=== PATIENT | male | born 1970 | race Caucasian/White ===

== ENCOUNTER 2017-03-08 03:02 | Inpatient (IN) | payer MEDICAID ==
--- NOTE | ~2017-03-08 | HEMODYNAMI ---
PATIENT:TEQUILA LEÓN MEDICAL RECORD: [id number] : 72 [id number] ADMISSION DATE: 03/08/17 Generatedon:03/08/201715:18 Patient name: TEQUILA LEÓN Patient #: [id number] SSN: DO B: 1970 Date of study: 03/08/2017 Page: Of Hemodynamic Procedure Report Patient Data Patient Demographics Procedure consent was obtained First Name: TEQUILA Gender: Male Last Name: ROMELIA : 1970 Patient #: [id number] Age: 47 year(s) Race: Unknown Additional ID: [id number] Contact details [address]: [address] [place] [address] [address] State: [place] City: [facility] Zip code: [address] Admission Admission Data Admission Date: 03/08/2017 Admission Time: 7:02 Arrival Date: 03/08/2017 Arrival Time: 0:00 Admit Source: Other Insurance Payor: Medicaid Room #: D.2125 Lab Results Lab Result Date: 03/08/2017 Lab Result Time: 0:00 Biochemistry Name Units Result Min Max BUN mg/dl 9 --(*---)-- 7 18 Creatinine mg/dl 0.9 --(-*--)-- 0.6 1.3 CBC Name Units Result Min Max Hemoglobin g/dl 13.9 --(*---)-- 13.5 17.5 Procedure Procedure Types Cath Procedure Diagnostic Procedure LHC LH w/Coronaries PCI Procedure Coronary Stent Initial Miscellaneous Procedures Moderate Sedation up to 45 minutes Procedure Description Procedure Date Procedure Date: 03/08/2017 Procedure Start Time: 14:58 Procedure End Time: 15:17 Procedure Staff Name Function Yasmani Balderrama MD Performing Physician Cielo Valdes RT Scrub Shayy Kahn RT Monitor Antoni Restrepo RN Nurse Procedure Data Cath Procedure Fluoroscopy Diagnostic fluoroscopy Total fluoroscopy Time: 3.3 time: 3.3 min min Diagnostic fluoroscopy Total fluoroscopy dose: 418 dose: 418 mGy mGy Contrast Material Contrast Material Type Amount (ml) Isovue 300 99 Entry Location Entry Primary Successful Side Size Upsize Upsize Entry Closure Succes sful Closure Location (Fr) 1 (Fr) 2 (Fr) Remarks Device Remarks Femoral Right 5 Fr 6 Fr Exoseal artery Short Estimated blood loss: 5 ml Diagnostic catheters Device Type Used For End Catheter Placement Cordis 5Fr JL 4.0 Left Coronary Catheter (MP) Angiography Cordis 5Fr 3DRC Catheter Right Coronary (MP) Angiography Cordis 5Fr Pigtail LV Angiography Catheter (MP) Procedure Complications No complications Procedure Medications Medication Administration Route Dosage Oxygen NC 2 l/min Heparin Flush Bag added to field 2 bags (1000units/500ml NS) 0.9% NaCl I.V. 100 ml/hr Fentanyl I.V. 50 mcg Versed I.V. 1 mg Fentanyl I.V. 50 mcg Versed I.V. 1 mg Fentanyl I.V. 50 mcg Heparin Bolus I.V. 5000 units Integrilin (Bolus I.V. 9 ml 2mg/ml) Integrilin (Bolus wasted 1 ml 2mg/ml) Plavix P.O. 600 mg Hemodynamics Rest HGB: 13.9 (g/dl) Heart Rate: 115 (bpm) Pressure Samples Time Site Value (mmHg) Purpose Heart Use Rate(bpm) 15:03 LV 149/5,28 Snapshot 110 Gradients Valve Time Site Site Mean SEP/DFP Peak To Heart Use 1 2 (mmHg) (sec/min) Peak Rate (mmHg) (bpm) Aortic 15:04 LV AO 110 Snapshots Pre Cath Intra NCS Post Cath Vital Signs Time Heart Resp SPO2 NIBP (mmHg) Rhythm Pain Sedation Rate (ipm) (%) Status Level (bpm) 14:23:03 108 21 95 129/107(117) NSR 0 (11) 10(A) , No pain 14:32:51 110 18 96 142/103(118) NSR 0 (11) 10(A) , No pain 14:37:13 112 17 96 143/108(123) NSR 0 (11) 10(A) , No pain 14:41:35 111 22 95 146/102(120) NSR 0 (11) 10(A) , No pain 14:46:00 112 17 96 136/107(131) NSR 0 (11) 10(A) , No pain 14:50:18 112 17 98 136/109(124) NSR 0 (11) 10(A) , No pain 14:54:36 111 30 95 142/107(128) NSR 0 (11) 10(A) , No pain 14:58:58 109 23 94 138/98(120) NSR 0 (11) 9(A) , No pain 15:03:14 108 20 94 153/107(124) NSR 0 (11) 9(A) , No pain 15:07:38 107 17 92 150/108(126) NSR 0 (11) 9(A) , No pain 15:12:00 112 18 93 141/100(119) NSR 0 (11) 9(A) , No pain 15:17:20 108 16 94 130/101(117) NSR 0 (11) 9(A) , No pain Medications Time Medication Route Dose Verified Delivered Reason Notes Effectiveness by by 14:53:31 Oxygen NC 2 Yasmani Gerardoy Per physician l/min [facility]. Sylvester Restrepo RN, MD 14:53:42 Heparin Flush added 2 Yasmani Antoni used for Bag to bags [facility]. Sylvester Restrepo RN procedure (1000units/500ml field HARKINS NS) 14:53:51 0.9% NaCl I.V. 100 Yasmani Corrales Per physician ml/hr [facility] Sylvester Restrepo RN, MD 14:55:31 Fentanyl I.V. 50 Yasmani Gerardoy for sedation mcg [facility] Sylvester Restrepo RN, MD 14:55:39 Versed I.V. 1 mg Yasmani Corrales for sedation [facility] Sylvester Restrepo RN, MD 14:58:04 Fentanyl I.V. 50 Yasmani Gerardoy for sedation mcg [facility] Sylvester Restrepo RN, MD 14:58:10 Versed I.V. 1 mg Yasmani Corrales for sedation [facility]. Sylvester Restrepo RN, MD 15:02:48 Fentanyl I.V. 50 Yasmani Gerardoy for sedation mcg [facility] Sylvester Restrepo RN, MD 15:07:01 Heparin Bolus I.V. 5000 Yasmani Corrales for units [facility] Sylvester Restrepo RN anticoagulation 15:07:12 Integrilin I.V. 9 ml Yasmani Corrales for (Bolus 2mg/ml) [facility] Sylvester Restrepo RN antiplatelet MD therapy 15:07:18 Integrilin wasted 1 ml Yasmani Corrales for (Bolus 2mg/ml) [facility] Sylvester Restrepo RN antiplatelet MD therapy 15:15:58 Plavix P.O. 600 Yasmani Antoni for mg [facility] Sylvester Restrepo RN antiplatelet MD therapy Procedure Log Time Note 13:53:28 Diagnostic Cath Status : Elective 13:53:38 Admit Source: Other 13:53:40 Arrival Date: 03/08/2017 12:00:00 AM 13:54:09 Insurance Payor : Medicaid 13:54:35 Lab Result : Hemoglobin 13.9 g/dl 13:54:35 Lab Result : Creatinine 0.9 mg/dl 13:54:35 Lab Result : BUN 9 mg/dl 13:54:40 Cielo Counts RT(R) sent for patient. Start room use. 13:54:41 Time tracking: Regular hours 13:54:46 Plan of Care:Hemodynamics will remain stable., Cardiac rhythm will remain stable., Comfort level will be maintained., Respiratory function will remain adequate., Patient/ family verbilizes understanding of procedure., Procedure tolerated without complication., Recovers from procedure without complications.. 14:17:41 Patient received from PCU to CCL 3 Alert and oriented. Tansferred to table in Supine position. 14:17:42 Warm blankets applied, and jannette hugger turned on for patient comfort. 14:17:42 Correct patient and procedure confirmed by team. 14:17:43 Signed procedure consent form obtained from patient. 14:17:44 ECG and BP/O2 sat monitors applied to patient. 14:17:45 Full Disclosure recording started 14:17:45 Vital chart was started 14:18:23 Baseline sample Acquired. 14:18:29 Rhythm: sinus tachycardia 14:18:36 H&P Date Dictated: 03/08/2017 New H&P dictated by physician.. 14:18:37 Pre-procedure instructions explained to patient. 14:18:37 Pre-op teaching completed and patient verbalized understanding. 14:18:38 Family in patients room. 14:18:50 Patient NPO since Midnight. 14:18:59 Is the patient allergic to Iodine/contrast media? No. 14:19:00 Was the patient premedicated? No 14:19:01 Is patient on blood thinner?No 14:19:02 Patient diabetic? Yes. 14:19:08 If diabetic: On Metformin? Yes 14:19:11 If on Metformin: Last Dose? 03/07/2017 14:19:19 Previous problem with sedation/anesthesia? No ? 14:19:20 Snore? Yes 14:19:21 Sleep apnea? Yes 14:19:22 Deviated septum? No 14:19:23 Opens mouth fully? Yes 14:19:24 Sticks out tongue? Yes 14:19:26 Airway obstruction? No ? 14:19:28 Dentures? No ? 14:19:31 Pre procedure: right dorsailis pedis pulse 2+ Normal; easily identifiable; not easily obliterated 14:20:23 Pre procedure: left dorsailis pedis pulse 2+ Normal; easily identifiable; not easily obliterated 14:20:28 Patient pain scale 0/10 ?. 14:20:37 IV patent on arrival in left hand with 0.9% NaCl at [facility]. 14:20:40 Lab results completed and on chart. 14:20:45 Right groin area was prepped with chlora-prep and draped in sterile fashion 14:20:45 Alarms reviewed by R. N. 14:20:46 Sharps counted by scrub and verified by R.N. 14:27:48 PERCUTANEOUS ENTRY 19GA needle opened to sterile field. 14:30:56 Physician arrived 14:30:57 --------ALL STOP TIME OUT------ 14:30:57 Final Timeout: patient, procedure, and site verified with staff and physician. All members of the team are in agreement. 14:31:00 Right groin site verified by team. 14:31:02 Physical assessment completed. ASA score P 2 - A patient with mild systemic disease as per Yasmani Balderrama MD. 14:31:05 Sedation plan: IV Moderate Sedation Versed, Fentanyl 14:51:00 Use device set Femoral Dx 14:51:01 Acist Syringe opened to sterile field. 14:51:01 Bag Decanter opened to sterile field. 14:51:02 Medline Cath Pack opened to sterile field. 14:51:02 Terumo 5Fr [place] Sheath opened to sterile field. 14:51:03 St Mois[place] 260cm J .035 wire opened to sterile field. 14:51:04 Acist Hand Control opened to sterile field. 14:51:04 Acist Manifold opened to sterile field. 14:51:05 Diagnostic Infinity 5Fr Multipack catheter opened to sterile field. 14:51:05 Tegaderm 4 x 4 opened to sterile field. 14:52:23 Zero performed for pressure channel P1 14:53:31 Oxygen 2 l/min NC was administered by Antoni Restrepo RN; Per physician; 14:53:42 Heparin Flush Bag (1000units/500ml NS) 2 bags added to field was administered by Antoni Restrepo RN; used for procedure; 14:53:51 0.9% NaCl 100 ml/hr I.V. was administered by Antoni Restrepo RN; Per physician; 14:55:31 Fentanyl 50 mcg I.V. was administered by Antoni Restrepo RN; for sedation; 14:55:39 Versed 1 mg I.V. was administered by Antoni Restrepo RN; for sedation; 14:58:04 Fentanyl 50 mcg I.V. was administered by Antoni Restrepo RN; for sedation; 14:58:10 Versed 1 mg I.V. was administered by Antoni Restrepo RN; for sedation; 14:58:33 Procedure started. 14:58:40 Local anesthetic to right femoral artery with Lidocaine 2% by Yasmani Balderrama MD.INITIAL ACCESS ONLY 14:58:49 A 5 Fr sheath was inserted into the Right Femoral artery 14:59:43 A Cordis 5Fr JL 4.0 Catheter (MP) was advanced over the wire and used for Left Coronary Angiography. 15:02:35 Catheter removed. 15:02:41 A Cordis 5Fr 3DRC Catheter (MP) was advanced over the wire and used for Right Coronary Angiography. 15:02:48 Fentanyl 50 mcg I.V. was administered by Antoni Restrepo RN; for sedation; 15:02:49 Catheter removed. 15:02:54 A Cordis 5Fr Pigtail Catheter (MP) was advanced over the wire and used for LV Angiography. 15:04:03 LV hemodynamics recorded. 15:04:04 LV gram done using THAYER 15:04:06 Injector settings: Ml/sec: 5, Volume: 15, 15:04:25 EF : 25 % 15:04:44 Catheter removed. 15:04:55 Proceeding to intervention. 15:05:14 Terumo 6Fr [place] Sheath opened to sterile field. 15:05:15 Merit BasixCompak Inflation Kit opened to sterile field. 15:05:16 Christensen Falcon 300cm 0.014 guide wire opened to sterile field. 15:06:12 Sheath upsized to a 6 Fr Short. 15:06:19 Cordis 6FR XBLAD 3.5 guide catheter opened to sterile field. 15:06:20 6 Fr xblad 3.5 guide catheter was inserted over the wire 15:06:27 cougar wire advanced. 15:07:01 Heparin Bolus 5000 units I.V. was administered by Antoni Restrepo RN; for anticoagulation; 15:07:12 Integrilin (Bolus 2mg/ml) 9 ml I.V. was administered by Antoni Restrepo RN; for antiplatelet therapy; 15:07:18 Integrilin (Bolus 2mg/ml) 1 ml wasted was administered by Antoni Restrepo RN; for antiplatelet therapy; 15:10:59 Wire advanced across lesion. 15:11:55 Inflation Number: 1 A Ashutosh OTW 3.5 x 18 stent was prepped and advanced across the Mid LAD. The stent was deployed at 14 JOHN for 0:45 (min:sec). 15:13:11 Stent catheter was removed intact over wire. 15:13:11 Wire removed. 15:13:11 Guide catheter removed. 15:13:18 Cordis 6Fr Exoseal opened to sterile field. 15:13:53 Sheath removed intact; hemostasis achieved with Exoseal to the Right Femoral artery. 15:13:56 Procedure ended.(Physican Out) 15:14:11 Fluoroscopy time 03.30 minutes. 15:14:17 Fluoroscopy dose: 418 mGy 15:14:17 Flurop Dose total: 418 15:14:27 Contrast amount:Isovue 300 99ml. 15:15:19 Sharps counted by scrub and verified by R.N. 15:15:36 Insertion/operative site no bleeding no hematoma. 15:15:38 Post-op/insertion site Right Femoral artery dressed using a 4 x 4 and Tegaderm. 15:15:41 Post right femoral artery:stable 15:15:42 Post Procedure Pulses reassessed and unchanged 15:15:45 Post procedure rhythm: unchanged. 15:15:47 Estimated blood loss: 5 ml 15:15:58 Plavix 600 mg P.O. was administered by Antoni Restrepo RN; for antiplatelet therapy; 15:16:16 Post procedure instruction explained to patient.Patient verbalizes understanding. 15:16:18 Patient needs reinforcement of post procedure teaching. 15:16:45 Procedure type changed to Cath procedure, Diagnostic procedure, LHC, LHC w/Coronaries, PCI procedure, Coronary Stent Initial, Miscellaneous Procedures, Moderate Sedation up to 45 minutes 15:16:47 Procedure and supply charges have been captured, reviewed, submitted and are correct. 15:16:52 Procedure Complication : No complications 15:16:55 Vital chart was stopped 15:16:55 See physician's report for complete and final results. 15:17:02 Report given to [facility]. 15:17:04 Patient transfered to [facility] with Stretcher. 15:17:26 Procedure ended. 15:17:26 Full Disclosure recording stopped 15:17:36 ACC-PCI Only Patient was given prescriptions, or instructed by Yasmani Balderrama MD to start/continue the following medications upon discharge: Plavix 15:17:37 End room use (Document Last) Intervention Summary Intervention Notes Time ActionType Lesion and Equipment Action# Pressure Duration Attributes Used 15:11:55 Place stent Mid LAD Hosmer OTW 1 14 00:45 3.5 x 18 stent Device Usage Item Name Manufacture Quantity Catalog Hospital Part Current Minim al Lot# / Number Charge Number Stock Stock Serial# Code PERCUTANEOUS [facility] 1 [id number] [id number] 5 [id number] ENTRY 19GA needle Acist Acist 1 26196 043937 567139 280679 20 Syringe Medical Systems Inc Bag Decanter Microtek 1 2002S 198127 65596 733101 5 Medical Inc. Medline Cath Cardinal 1 [id number] 577532 01213 721358 5 Pack Health Terumo 5Fr Terumo 1 [id number] 090899 535316 920748 [address] [facility] [place] 1 322965 179948 057383 363900 30 260cm J .035 wire Acist Hand Acist 1 26228 842216 327406 086510 5 Control Medical Systems Inc Acist Acist 1 44871 018082 151630 089319 5 Manifold Medical Systems Inc Diagnostic Cardinal 1 LD0801 006280 72234 631572 30 Infinity 5Fr Health Multipack catheter Tegaderm 4 x 3M 1 1626W 919703 578338 394653 5 4 Cordis 5Fr Cardinal 1 482783 5 JL 4.0 Health Catheter (MP) Cordis 5Fr Cardinal 1 707826 5 3DRC Health Catheter (MP) Cordis 5Fr Cardinal 1 700666 5 Pigtail Health Catheter (MP) Terumo 6Fr Terumo 1 EMU772 757053 989375 538957 40 [place] Sheath Merit [facility] 1 KV1739 245390 611321 412930 15 BasixDecohuntpak Medical Inflation Kit Christensen Christensen 1 [id number] 357736 028067 715404 1 Falcon 300cm Vascular 0.014 guide wire Cordis 6FR Cardinal 1 [id number] 966473 760480 242828 10 XBLAD 3.5 Health guide catheter Ashutosh OTW 3.5 Medtronic 1 [id number] 932377 9607641 117615 5 [id number] x 18 stent Cordis 6Fr Cardinal 1 EX600 579664 158107 607379 10 [facility] Signature Audit [place] Stage Time Signature Unsigned Intra-Procedure 03/08/2017 Shayy Kahn 3:18:44 PM RT(R) Signatures Monitor : Shayy Kahn RT Signature : Date : Time : [place] [id number] [facility] [place] [address]
[2017-03-08 03:51] LABS: BASOPHILS 0.3 % (0-2); EOSINOPHILS 1.4 % (0-7); HEMATOCRIT 40.5 % (42.0-54.0); HEMOGLOBIN 13.9 g/dL (13.5-17.5); IMMATURE GRANULOCYTES 2.7 % (0-5); LYMPHOCYTES 14.4 % (15-50); MCH 29.6 pg (26.0-34.0); MCHC 34.3 g/dL (31.0-37.0); MCV 86.4 fL (80.0-100.0); MEAN PLATELET VOLUME 9.8 fL (7.4-10.4); MONOCYTES 9.4 % (2-11); NEUTROPHILS 71.8 % (40-80); PLATELET COUNT 264 10x3/uL (130-400); RBC 4.69 10x6/uL (4.20-6.10); RDW 13.4 % (11.5-14.5); WBC 14.5 10x3/uL (4.8-10.8)
[2017-03-08 04:29] LABS: ALBUMIN 3.2 g/dL (3.4-5.0); ALKALINE PHOSPHATASE 135 U/L (46-116); ALT (SGPT) 25 U/L (10-68); BILIRUBIN - TOTAL 0.19 mg/dL (0.2-1.3); CALC OSMOLALITY 277 mosm/kg (275-300); CALCIUM 8.9 mg/dL (8.5-10.1); CARBON DIOXIDE 28.6 mmol/L (21.0-32.0); CHLORIDE - SERUM 98 mmol/L (98-107); CREATININE - SERUM 0.9 mg/dL (0.6-1.3); GLUCOSE 252 mg/dL (74-106); POTASSIUM - SERUM 3.9 mmol/L (3.5-5.1); PROTEIN - SERUM 7.3 g/dL (6.4-8.2); SODIUM 135 mmol/L (136-145); UREA NITROGEN 9 mg/dL (7-18); eGFR NON AFRICAN AMERICAN > 90 mL/min (90-120)
[2017-03-08 04:44] LABS: C-REACTIVE PROTEIN 2.7 mg/dL (0.0-0.9); CREATINE KINASE 86 UL (21-232); PRO BNP 1100 pg/mL (0-125); TROPONIN-I 0.032 ng/mL (0.000-0.060)
[2017-03-08 05:21] LABS: ERYTHROCYTE SEDIMENTATION RATE 21 mm/hr (0-15)
--- NOTE | 2017-03-08 07:39 | NUR ---
REPORT RECEIVED ON PT FROM ER
[2017-03-08] MEDS ORDERED: GLUCOPHAGE1000 MG PO (08:04)
[2017-03-08] MEDS ORDERED: ZOCOR40 MG PO (08:05)
[2017-03-08] MEDS ORDERED: PERCOCET 10/3251 TA1 PO (08:05)
[2017-03-08] MEDS ORDERED: PENICILLIN V P500 MG PO (08:06)
[2017-03-08 08:07] VITALS: BP 149/93; BMI 33.0
[2017-03-08] MEDS ORDERED: HUMALOG MI100 UNITS/ SC ×2 (08:07)
--- NOTE | 2017-03-08 08:15 | NUR ---
ADMISSION COMPLETE. PT SITTING UP IN BED EATING BREAKFAST FAMILY AT BEDSIDE. CO PAIN, NO PAIN ORDERS WILL PAGE DR FOR ORDER
--- NOTE | 2017-03-08 08:18 | NUR ---
PT IS RUNNING ST WITH TRIGEMENY PVCS 122 BPM
--- NOTE | 2017-03-08 08:35 | NUR ---
DR. BENTON AT BS. WILL CONT. PLAN OF CARE.
--- NOTE | 2017-03-08 10:12 | NUR ---
PT CONSENTS SIGNED AND ON THE CHART FOR HEART CATH THIS AFTERNOON
[2017-03-08 10:29] VITALS: BMI 32.9
[2017-03-08 12:10] VITALS: BP 132/85
--- NOTE | 2017-03-08 13:52 | NUR ---
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 REMOVED NITRO PASTE THAT I JUST PLACED ON PT CHEST PRIOR TO MUSIC COPYIST CALLING TO PREOP. I HAD TO PLACE ANOTHER NITRO PASTE TO R WRIST. DONT WANT PT PRESSURE TO DROP. PT ONLY HAS NITRO PASTE TO R WRIST CURRENTLY
--- NOTE | 2017-03-08 14:44 | NUR ---
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
--- NOTE | 2017-03-08 14:50 | EC ---
PATIENT:TEQUILA LEÓN DATE OF SERVICE: 03/08/17 SEX: M MEDICAL RECORD: [id number] DATE OF : [birth year] LOCATION:D. D.212 AGE OF PATIENT: 47 ADMISSION DATE: 03/08/17 REFERRING PHYSICIAN: INTERPRETING PHYSICIAN: SHAY BENTON MD ECHOCARDIOGRAM REPORT ECHO CHARGES 4 ECHO COMPLETE CLINICAL DIAGNOSIS: POSSIBLE ENDOCARDITIS/ CARDIOMYOPATHY ECHOCARDIOGRAPHIC MEASUREMENTS (adult normal given) AC root (d.<3.7cm) 3.2 cm LV Septum d (<1.2 cm> 1.2 cm Valve Excursion 2.1 cm LV Septum (systole) 1.5 cm Left Atria (s.<4.0cm> 4.9 cm LVPW d(<1.2cm) 1.3 cm RV (d.<2.3cm) 2.4 cm LVPW (sytole) 1.8 cm LV diastole(<5.6CM) 6.9 cm MV E-F(>70mm/sec) cm LV systole 5.8 cm LVOT Diameter 1.9 cm MV exc.(>10mm) cm Est.ejection fraction (50-75%) % Pericardial Effusion N DOPPLER: LVIT cm/sec A cm/sec E 121 cm/sec LA cm/sec RVSP 25.1 mmHg LVOT 110 cm/sec AOP1/2T m/s Asc. Ao 142 cm/sec RVOT 73.0 cm/sec RA cm/sec PA 106 cm/sec AV Gradient Peak 8.1 mmHg AV Mean 3.8 mmHg AV Area 2.3 cm MV Gradient Peak 6.6 mmHg MV Mean 2.7 mmHg MV Area cm COMMENTS: Executive Producer: 1 LOBITO BONDSOE Operations And Intelligence Assistant: 3 Dr. Balderrama TAPE# PACS DATE OF SERVICE: 03/08/2017 Adequate 2D, color flow and spectral Doppler, and M-mode. Borderline LVH. LV internal dimensions are dilated. LV is globally hypokinetic with reduced EF. Estimated EF 20%. Aortic valve is tricuspid. No stenosis by Doppler interrogation. Left atrium is dilated at 4.9 cm. Mitral valve shows no prolapse. Ivyd-ty-rwfnlkbo MR. Right-sided chambers grossly normal. Trace TR. TRANSINT:[id number] Voice Confirmation ID: [id number] DOCUMENT ID: [id number] ECHOCARDIOGRAM REPORT [id number] TEQUILA LEÓN,SHAY Wiseman MD at 1450 CC: [id number] DICTATION DATE: 03/08/17 1347 HAND CROWN POUNCER: 03/08/17 1438 ADM IN [place] [id number] [place] [id number]
--- NOTE | 2017-03-08 14:50 | CN ---
PATIENT NAME:TEQUILA LEÓN MEDICAL RECORD: [id number] : 72 LOCATION:D. D.2125 ADMIT DATE: 03/08/17 ACCOUNT: [id number] CONSULTING PHYSICIAN: SHAY BENTON MD REFERRING PHYSICIAN: NOEMI GODFREY MD DATE OF CONSULTATION: 03/08/2017 HISTORY OF PRESENT ILLNESS: This is a 47-year-old gentleman with a longstanding history of diabetes. Actually, he 11 teeth pulled on Monday, has been feeling poorly since then. He had onset last night of chest tightness and pressure consistent with angina, but had marked diaphoresis, did not feel his sugar was decreased. He has had some dyspnea on exertion as of late. Typically, he stays quite active, climbing up ladders, plays softball on occasion. We are asked to see him concerning his cardiovascular status. PAST MEDICAL HISTORY: Includes; 1. History of diabetes mellitus. 2. Dyslipidemia. ALLERGIES: None known. MEDICATIONS: Typically include insulin per scale, Metformin 1 gram b.i.d., simvastatin 40 at bedtime. SOCIAL HISTORY: . Lives here in [place]. Stays quite active, does exercise. No illicit drug use. REVIEW OF SYSTEMS: The patient reports easy bruising but reports no swollen glands. The patient reports no fever, no night sweats, no significant weight gain, no significant weight loss. No significant exercise tolerance. The patient reports no dry eyes, no irritation, no vision change. Patient reports no difficulty hearing and no ear pain. Patient reports no frequent nose bleeds or nose and sinus problems. Patient reports on arm pain on exertion. No shortness of breath while lying down. No history of heart murmur. Patient reports no cough, no wheezing or coughing up blood. Patient reports no abdominal pain, no vomiting. Normal appetite. No diarrhea and not vomiting blood. No nausea and no constipation. Patient reports no incontinence. No difficulty urinating. No hematuria. No increased frequency. Patient reports no muscle aches. No weakness, no arthralgias, no back pain. No swelling of the extremities. Patient reports no abnormal mole, no jaundice, no rashes. Reports no loss of consciousness. No weakness and no numbness. No seizures, dizziness, or headaches. The patient reports no depression, no sleep disturbance, feeling safe in a relationship and no alcohol abuse. Patient reports on fatigue. Reports no runny nose or sinus pressure. No itching, no hives, and no frequent sneezing. PHYSICIAL EXAMINATION: GENERAL: Pleasant gentleman, in no acute distress. VITAL SIGNS: Pulse 53 and irregular. Blood pressure 149/93. HEENT: Normocephalic, atraumatic. HEART: Currently is irregular with frequent extrasystoles. LUNGS: Diminished air excursion. ABDOMEN: Soft and nontender. EXTREMITIES: Pulses decreased, 1+. There is no edema. CONSULT REPORT [id number] TEQUILA LEÓN LABORATORY DATA: ECG shows nonspecific ST-T changes, frequent PVCs. IMPRESSION: Acute coronary syndrome. PLAN: Diagnostic angiography, intervention based on the above. TRANSINT:[id number] Voice Confirmation ID: [id number] DOCUMENT ID: [id number] SHAY BENTON MD at 1450 CC: [id number] DICTATION DATE: 03/08/17 0859 OCCUPATIONAL THERAPY AIDE: 03/08/17 1238 ADM IN [place] [id number] [place] [id number]
--- NOTE | 2017-03-08 15:41 | NUR ---
PT IS BACK FROM [facility] THERAPIST ALERT AND ORIENTED STILL LETHARGIC BUT ARROUSES EASILY. VS ARE WNL. R ZANDERIN SITE IS WNL. PT FAMILY IS AT BEDSIDE. WILL CONT TO MONITOR
--- NOTE | 2017-03-08 16:30 | NUR ---
PT STILL LAYING FLAT VS ARE STILL WNL R GROIN SITE STILL WNL. PT DENIES NEEDS AT BEDSIDE.
[2017-03-08 20:00] VITALS: BP 120/68
--- NOTE | 2017-03-08 20:10 | NUR ---
PT AWAKE, ALERT, ORIENTED, SITTING UP IN BED EATING A SALAD. PT DENIES PAIN OR ANY DIFFICULTIES FROM CATH EARLIER TODAY. AT BEDSIDE. WILL CONTINUE TO MONITOR PT CLOSELY.
--- NOTE | 2017-03-08 22:18 | NUR ---
ORANGE POPSICLE GIVEN TO PT FOR HS SNACK AFTER ADMINISTRATION OF HIS HUMALOG. PT DENIES ANY NEEDS AT THIS TIME. CONTINUE TO MONITOR CLOSELY.
[2017-03-09 04:24] LABS: BASOPHILS 0.4 % (0-2); EOSINOPHILS 2.1 % (0-7); HEMATOCRIT 38.2 % (42.0-54.0); HEMOGLOBIN 13.3 g/dL (13.5-17.5); IMMATURE GRANULOCYTES 2.2 % (0-5); LYMPHOCYTES 21.6 % (15-50); MCH 30.1 pg (26.0-34.0); MCHC 34.8 g/dL (31.0-37.0); MCV 86.4 fL (80.0-100.0); MEAN PLATELET VOLUME 10.2 fL (7.4-10.4); MONOCYTES 11.8 % (2-11); NEUTROPHILS 61.9 % (40-80); PLATELET COUNT 263 10x3/uL (130-400); RBC 4.42 10x6/uL (4.20-6.10); RDW 13.3 % (11.5-14.5)
[2017-03-09 04:26] LABS: WBC 9.5 10x3/uL (4.8-10.8)
[2017-03-09 05:04] VITALS: BP 117/64
[2017-03-09 05:06] LABS: CALC OSMOLALITY 276 mosm/kg (275-300); CARBON DIOXIDE 31.8 mmol/L (21.0-32.0); CHLORIDE - SERUM 96 mmol/L (98-107); GLUCOSE 220 mg/dL (74-106); POTASSIUM - SERUM 3.9 mmol/L (3.5-5.1); SODIUM 135 mmol/L (136-145); VANCOMYCIN - TROUGH 8.9 ug/mL (10.0-20.0); eGFR NON AFRICAN AMERICAN 85 mL/min (90-120)
[2017-03-09 05:11] LABS: UREA NITROGEN 13 mg/dL (7-18)
--- NOTE | 2017-03-09 07:34 | NUR ---
ASSESSMENT DONE. DENIES NEEDS.
[2017-03-09 07:42] VITALS: BP 111/66
--- NOTE | 2017-03-09 07:44 | NUR ---
IV PATENT. AT BS. CALL LIGHT IN REACH. WILL MONITOR NEEDS.
[2017-03-09] MEDS ORDERED: COREG12.5 MG PO (12:05)
[2017-03-09] MEDS ORDERED: PLAVIX75 MG PO (12:05)
[2017-03-09] MEDS ORDERED: COZAAR50 MG PO (12:05)
[2017-03-09] MEDS ORDERED: ALDACTONE25 MG PO (12:06)
--- NOTE | 2017-03-09 14:10 | OP ---
PATIENT NAME: TEQUILA LEÓN MEDICAL RECORD: [id number] :72 LOCATION:D.M2 D.2125 ADMISSION DATE:03/08/17 SURGEON: SHAY BENTON MD DATE OF OPERATION: PROCEDURE: Left heart catheterization, selective coronary angiography, right femoral artery approach. CATHETERS: A 5-[place] sheath, 5/4 left and right Antonieta, 5/4 pig. The procedure was well tolerated. The patient returned to the tinoco, sheath removed. ExoSeal device placed. FINDINGS: Left ventriculography in 30-degree THAYER view shows global hypokinesis, reduced EF 20% to 25%. CORONARY ANATOMY: LEFT MAIN: Left main is free of disease. LAD: Has a diffuse 90% stenosis in its proximal portion. CIRCUMFLEX: Area of small circumflex free of disease. RIGHT CORONARY ARTERY: Free of disease. IMPRESSION: Single-vessel disease and cardiomyopathy in excess of his actual coronary artery disease. PLAN: Intervention LAD momentarily with medical therapy for his myopathy. DESCRIPTION OF PROCEDURE: A 5-[place] Citizen sheath was changed for a 6-[place] Citizen sheath. An XB LAD guiding catheter provided a good guide catheter support followed by 30 cm Whisper wire was placed across the tightly occluded LAD down towards this vessel. Stent deployed was a 3.5 x 18 [place] drug-eluting stent up to 14 atmospheres for 45 seconds. Final injection shows excellent resolution of a diffuse 90% stenosis, no significant residual. ANJALI flow was 3 at the end of the procedure and heparin was used in the case. Sheath closed with ExoSeal device. TRANSINT:[id number] Voice Confirmation ID: [id number] DOCUMENT ID: [id number] SHAY BENTON MD at 1410 CC: [id number] DICTATION DATE: 03/08/17 1519 DAY CARE DIRECTOR: 03/08/17 1542 ADM IN [facility] [address] [place] [address]
--- NOTE | 2017-03-09 15:07 | NUR ---
DC GIVEN TO PT
--- NOTE | 2017-03-09 15:28 | NUR ---
DC HOME PER PERSONAL CAR
--- NOTE | 2017-03-09 16:04 | DS ---
PATIENT:TEQUILA LEÓN :72 MEDICAL RECORD: [id number] DISCHARGE SUMMARY ADMISSION DATE: 03/08/17 DISCHARGE DATE: 03/09/17 DATE OF ADMISSION: 03/08/2017 DATE OF DISCHARGE: 03/09/2017 ADMITTING DIAGNOSES: 1. Chest pain. 2. Congestive heart failure. 3. Type 2 diabetes mellitus with hyperglycemia. 4. Elevated BNP. 5. Leukocytosis. 6. Hyperlipidemia. HOSPITAL COURSE: This is a gentleman of Dr. Rees, admitted with diagnoses as outlined above. Details are well-outlined in the history of the present illness, H&P. All events, lab procedures, diagnostic testing are well documented in the records. The patient was admitted. Started on Accu-Chek blood sugars, sliding scale insulin. PPI for GI prophylaxis. SCDs for DVT prophylaxis. Cardiology consulted, Dr. Balderrama saw him. His recommendations were followed. 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 He had single-vessel disease and cardiomyopathy in excess of his actual coronary artery disease, Dr. Balderrama did intervention of the LAD momentarily with medical therapy for his myopathy. Please refer to his cardiac cath report. He had a drug-eluting Ashutosh stent. He was kept overnight due to his cardiomyopathy. He did well post procedure. It is thought that possibly cardiomyopathy due to infectious etiology and as noted in the history of the present illness recently had multiple teeth extracted and had been on some antibiotics. He is dismissed home. He has an appointment with Dr. Rees, his PCP next week. He has an appointment with Dr. Balderrama, who will repeat echo in a few weeks. Echo here at the hospital showed EF down to 20%. Please refer to the report. He is dismissed home. Please refer to med rec. New medicines include Plavix, Coreg, Cozaar, Aldactone. DISCHARGE DIAGNOSES: 1. Chest pain. 2. Congestive heart failure. 3. Type 2 diabetes mellitus with hyperglycemia. 4. Elevated BNP. 5. Leukocytosis. 6. Hyperlipidemia. 7. Single-vessel coronary artery disease status post stent, cardiomyopathy in excess of his actual coronary artery disease. Etiology of cardiomyopathy unknown, infectious etiology suspected. Thirty-five minutes was spent on this discharge. TRANSINT:[id number] Voice Confirmation ID: [id number] DOCUMENT ID: [id number] Dictated By: JELANI HANIG RN I have interviewed/examined the above patient and agree with these documented findings. DISCHARGE SUMMARY REPORT [id number] TEQUILA LEÓN JODI MD at 1604 at 1506 CC: [id number] DICTATION DATE: 03/09/17 1210 DAY WORKER: 03/09/17 1255 DIS IN 03/09/17 [id number] [place] [address]
--- NOTE | 2017-03-09 16:21 | NUR ---
Patient Name: TEQUILA LEÓN Admission Status: ER Accout number: [id number] Admission Date: 03-08-2017 : 1970 Admission Diagnosis: Attending: NOEMI GODFREY Current LOS: 1 Anticipated DC Date: 03-09-2017 Planned Disposition: Home Primary Insurance: MEDICAID [place] LATE ENTRY: Discharge Planning Comments: * Is the patient Alert and Oriented? Yes 0 * How many steps to enter\exit or inside your home? 4 0 * PCP DR. DHILLON 0 * Pharmacy [facility] [address] * Preadmission Environment Home with Family 0 * ADLs Independent 0 * Equipment Glucometer 0 * Other Equipment NO MEDICAL EQUIPMENT PROVIDER PREFERENCE 0 * List name and contact numbers for known caregivers / representatives who currently or will assist patient after discharge: SAMANTHA LEÓN, SPOUSE, , 0 * Community resources currently utilized None 0 * Please name any agencies selected above. NONE 0 * Additional services required to return to the preadmission environment? No 0 * Can the patient safely return to the preadmission environment? Yes 0 * Has this patient been hospitalized within the prior 30 days at any hospital? No 0 CM MET WITH PT IN ROOM TO DISCUSS DISCHARGE PLANNING AND NEEDS. PT REPORTS LIVING AT HOME INDEPENDENTLY WITH SPOUSE. PT HAS A GLUCOMETER THAT IS NOT WORKING AND HE PLANS TO BUY ANOTHER ONE AT [facility]. PT HAS NO MEDICAL EQUIPMENT PROVIDER PREFERNCE AND NO OUTSIDE SERVICES ASSISTING IN THE HOME. CM DISCUSSED AVAILABILITY OF HOME HEALTH, REHAB SERVICES AND MEDICAL EQUIPMENT. PT DENIES DISCHARGE NEEDS, REPORTS HIS SPOUSE IS HERE TO PICK HIM UP FOR DISCHARGE HOME. Cafe Or Restaurant Manager: Mio Livingston
== END 2017-03-09 15:28 | disposition home or self-care (01) | DRG 247 ==
LOC: D.ER 03:02 → D.M2 07:02
PROVIDERS: Family Medicine; Internal Medicine Interventional Cardiology; ADMIT Family Medicine
PROC: B2111ZZ Fluoroscopy of Multiple Coronary Arteries using Low Osmolar Contrast (ICD-10-PCS; 2017-03-08)
PROC: B2151ZZ Fluoroscopy of Left Heart using Low Osmolar Contrast (ICD-10-PCS; 2017-03-08)
PROC: 027034Z Dilation of Coronary Artery, One Artery with Drug-eluting Intraluminal Device, Percutaneous Approach (ICD-10-PCS; principal; 2017-03-08 13:00)
PROC: 4A023N7 Measurement of Cardiac Sampling and Pressure, Left Heart, Percutaneous Approach (ICD-10-PCS; 2017-03-08 13:00)
DX: I25.10 Atherosclerotic heart disease of native coronary artery without angina pectoris (principal); E78.5 Hyperlipidemia, unspecified; E11.65 Type 2 diabetes mellitus with hyperglycemia; E11.40 Type 2 diabetes mellitus with diabetic neuropathy, unspecified; Z79.4 Long term (current) use of insulin; I42.9 Cardiomyopathy, unspecified; I50.9 Heart failure, unspecified

== ENCOUNTER → 2017-10-25 13:01 | Outpatient (CLI) | payer OTHER ==
[~2017-10-25 13:01] MED LIST: ALDACTONE25 MG PO; COREG12.5 MG PO; COZAAR50 MG PO; GLUCOPHAGE1000 MG PO; HUMALOG MI100 UNITS/ SC; PENICILLIN V P500 MG PO; PERCOCET 10/3251 TA1 PO; PLAVIX75 MG PO; ZOCOR40 MG PO
== END | disposition home or self-care (01) ==
LOC: D.RAD 13:01
DX: Z02.71 Encounter for disability determination (principal)